=== PATIENT | male | born 1995 ===

== ENCOUNTER 2019-09-06 19:30 | Emergency (ER) | payer SELFPAY ==
[~2019-09-06] VITALS: Ht 182.9 cm; Wt 104.5 kg
[2019-09-06 19:54] VITALS: BP 139/85; PULSE 88; TEMP 97.8
== END 2019-09-06 22:35 | disposition left against medical advice (07) ==
LOC: COL.ER 19:30
DX: S61.411A Laceration without foreign body of right hand, initial encounter (principal)